=== PATIENT | female | born 1985 | race Hispanic/Latino ===

== ENCOUNTER 2017-11-06 14:15 | Inpatient (IN) | payer BC ==
[~2017-11-06] VITALS: Ht 157.5 cm; Wt 98.0 kg
[2017-11-06 17:07] LABS: MEAN CORPUSCULAR HEMOGLOBIN 30.9 pg (27.0-33.0); MEAN CORPUSCULAR HGB CONC 34.6 g/dL (32.0-36.0); MEAN CORPUSCULAR VOLUME 89.4 fL (79-99); PLATELET COUNT (AUTO) 234 K/uL (130-400); RED BLOOD CELL COUNT(AUTO) 4.36 MIL/uL (4.00-5.50); RED CELL DISTRIBUTION WIDTH 13.9 % (11.0-15.5); WHITE BLOOD COUNT (AUTO) 7.8 K/uL (4.8-10.8)
[2017-11-08] VITALS (15 sets, daily range): BP systolic 94–121; BP diastolic 49–69
[2017-11-08] MEDS ORDERED: LACTATED RINGERS 1000ML 1,000 ML IV SCH (07:30)
[2017-11-08] MEDS ORDERED: OXYTOCIN 10 USP UNITS/ML IM PRN (07:30)
[2017-11-08] MEDS ORDERED: CEFAZOLIN SODIUM 1 GM VIAL IVP PRN (07:30)
[2017-11-08] MEDS ORDERED: CALDOLOR 800MG+NS 250ML 250 ML IV PRN (07:30)
[2017-11-08] MEDS ORDERED: OXYTOCIN 10 USP UNITS/ML ONE ×2 (11:41→17:54)
[2017-11-08] MEDS ORDERED: CEFAZOLIN SODIUM 1 GM VIAL ONE (11:41)
[2017-11-08] MEDS ORDERED: DURAMORPH PF1 MG/ML 10ML AMP IV ONE (11:51)
[2017-11-08] MEDS ORDERED: CEFAZOLIN SODIUM 1 GM VIAL IVP ONE (11:58)
[2017-11-08] MEDS ORDERED: PHENYLEPHRINE HCL 10 MG/ML 1ML VIAL IV ONE (12:02)
[2017-11-08 12:18] LABS: HEPATITIS Bs ANTIGEN SCREEN P Negative (Negative)
[2017-11-08] MEDS ORDERED: MIDAZOLAM HCL 1 MG/ML 2ML VIAL ONE (12:37)
[2017-11-08] MEDS ORDERED: PNV61CAP PO (14:38)
[2017-11-08] MEDS ORDERED: OXYTOCIN-LR 20 UNITS/1000 ML 1,000 ML IV PRN (14:57)
[2017-11-08] MEDS ORDERED: PROMETHAZINE HCL 25 MG/ML 1ML AMPULE IM PRN ×2 (15:00→17:00)
[2017-11-08] MEDS ORDERED: MEPERIDINE-PF 75 MG/ML SYG IM PRN (15:00)
[2017-11-08] MEDS ORDERED: SODIUM CHLORIDE 0.9% 10 ML VIAL IVP PRN (15:00)
[2017-11-08] MEDS ORDERED: DEXTROSE 5 %-0.45 % NACL 1,000 ML IV PRN (15:00)
[2017-11-08] MEDS ORDERED: MORPHINE SULFATE 2 MG/ML 1ML SYG IVP PRN (17:00)
[2017-11-08] MEDS ORDERED: EPHEDRINE SULFATE 50 MG/ML AMPULE IVP PRN (17:00)
[2017-11-08] MEDS ORDERED: DiphenhydrAMINE HCL 50 MG/ML VIAL IVP PRN (17:00)
[2017-11-08] MEDS ORDERED: METOCLOPRAMIDE 10 MG/2 ML VIAL IVP PRN (17:00)
[2017-11-08] MEDS ORDERED: HYDROCODONE/ACETAMINOPHEN 5/325 MG TAB PO PRN (17:00)
[2017-11-08] MEDS ORDERED: ONDANSETRON HCL 4 MG/2 ML 8 MG in SODIUM CHLORIDE 0.9% 50 ML IVP NR (17:00)
[2017-11-08] MEDS ORDERED: ONDANSETRON HCL 4 MG/2 ML VIAL IVP PRN ×2 (17:00)
[2017-11-08] MEDS ORDERED: NALOXONE HCL 0.4 MG/1 ML ML IVP PRN ×2 (17:00)
[2017-11-08] MEDS: HYDROCODONE/ACETAMINOPHEN 5/325 MG TAB PO PRN (18:49)
[2017-11-08] MEDS ORDERED: CEFAZOLIN 2GM / 50 ML 50 ML IV SCH (20:00)
[2017-11-08] MEDS: CEFAZOLIN SODIUM 1 GM VIAL IVP SCH (20:27)
[2017-11-08] MEDS: CALDOLOR 800MG+NS 250ML 250 ML IV SCH (20:38)
[2017-11-09 03:39] VITALS: BP 94/59
[2017-11-09] MEDS: CEFAZOLIN SODIUM 1 GM VIAL IVP SCH (03:52)
[2017-11-09] MEDS: CALDOLOR 800MG+NS 250ML 250 ML IV SCH (04:49)
[2017-11-09 06:54] LABS: HEMATOCRIT 29.7 % (36-48); MEAN CORPUSCULAR HEMOGLOBIN 30.7 pg (27.0-33.0); MEAN CORPUSCULAR HGB CONC 34.5 g/dL (32.0-36.0); MEAN CORPUSCULAR VOLUME 89.1 fL (79-99); PLATELET COUNT (AUTO) 184 K/uL (130-400); RED BLOOD CELL COUNT(AUTO) 3.34 MIL/uL (4.00-5.50); RED CELL DISTRIBUTION WIDTH 13.7 % (11.0-15.5); WHITE BLOOD COUNT (AUTO) 8.7 K/uL (4.8-10.8)
[2017-11-09 07:49] VITALS: BP 89/49
[2017-11-09] MEDS: HYDROCODONE/ACETAMINOPHEN 5/325 MG TAB PO PRN ×4 (09:19→22:41)
[2017-11-09 11:37] VITALS: BP 101/61
[2017-11-09] MEDS: IBUPROFEN 800 MG TAB PO SCH ×2 (12:59→21:17)
[2017-11-09 15:39] VITALS: BP 103/69
[2017-11-09] MEDS ORDERED: LIDOCAINE 5% TOPICAL PATCH TP SCH (16:15)
[2017-11-09] MEDS: SIMETHICONE 80 MG TAB.CHEW PO PRN ×2 (19:00→21:16)
[2017-11-09 19:19] VITALS: BP 108/64
[2017-11-09 23:13] VITALS: BP 99/57
[2017-11-10 03:14] VITALS: BP 96/61
[2017-11-10] MEDS: HYDROCODONE/ACETAMINOPHEN 5/325 MG TAB PO PRN ×2 (03:16→09:02)
[2017-11-10] MEDS: IBUPROFEN 800 MG TAB PO SCH (05:59)
[2017-11-10 07:42] VITALS: BP 95/50
[2017-11-10] MEDS: SIMETHICONE 80 MG TAB.CHEW PO PRN (08:58)
[2017-11-10] MEDS ORDERED: LIDOCAINE 5% TOPICAL PATCH TP SCH (09:00)
[2017-11-10 11:21] VITALS: BP 110/70
[2017-11-10] MEDS ORDERED: DIPH,PERTUSS(ACELL),TET VAC/PF 0.5 ML VIAL IM SCH (11:30)
[2017-11-10] MEDS ORDERED: LANOLIN 30GM OINTMENT TP PRN (11:30)
[2017-11-10] MEDS ORDERED: MO8B PO (13:01)
[2017-11-10] MEDS ORDERED: DOCU240C80 PO (13:01)
[2017-11-10] MEDS ORDERED: ACET1TAB12 PO (13:02)
== END 2017-11-10 13:25 | disposition home or self-care (01) | DRG 765 ==
LOC: EDSTATUS 14:15 → LDH 11-08 06:34 → WSH 11-08 14:15
PROC: 3E0234Z Introduction of Serum, Toxoid and Vaccine into Muscle, Percutaneous Approach (ICD-10-PCS; 2017-11-08)
PROC: 10D00Z1 Extraction of Products of Conception, Low, Open Approach (ICD-10-PCS; principal; 2017-11-08 09:00)
DX: O69.81X0 Labor and delivery complicated by cord around neck, without compression, not applicable or unspecified (principal); D62 Acute posthemorrhagic anemia; O36.63X0 Maternal care for excessive fetal growth, third trimester, not applicable or unspecified; Z23 Encounter for immunization; Z37.0 Single live birth; Z3A.39 39 weeks gestation of pregnancy
CPT/HCPCS: 36415; 59510; 85027; 86592; 86850; 86900; 86901; 87340; 90715; A4218; A4344; A4606; J0690; J1741; J2250; J2274; J2370; J2405; J2590; J7120